=== PATIENT | male | born 1955 | race Caucasian/White ===

== ENCOUNTER 2018-06-01 04:08 | Inpatient (IN) | payer MEDICARE, OTHER ==
[2018-06-01] VITALS (12 sets, daily range): BP systolic 105–140; BP diastolic 64–86
[~2018-06-01] VITALS: Ht 167.6 cm; Wt 72.0 kg
[2018-06-01] MEDS ORDERED: PANTOPRAZOLE 80 MG in SODIUM CHLORIDE 0.9% 100 ML IV SCH (04:11)
[2018-06-01] MEDS ORDERED: OCTREOTIDE 500 MCG in SODIUM CHLORIDE 0.9% 249 ML IV PRN (04:11)
[2018-06-01] MEDS ORDERED: PANTOPRAZOLE 40 MG IV ONE (04:15)
[2018-06-01] MEDS ORDERED: SODIUM CHLORIDE 0.9% 1,000ML IVBOLUS ONE (04:30)
[2018-06-01] MEDS ORDERED: PANTOPRAZOLE 40 MG IV IVPush ONE (04:30)
[2018-06-01] MEDS ORDERED: OCTREOTIDE 100MCG/ML, 1ML (0.1MG/ML) IV ONE (04:30)
[2018-06-01] MEDS ORDERED: SODIUM CHLORIDE FLUSH 10ML SYR IVF ONE (04:30)
[2018-06-01] MEDS ORDERED: ONDANSETRON 2MG/ML, 2ML IVPush ONE (04:30)
--- NOTE | 2018-06-01 04:45 | NUR ---
PT TO TRAUMA 3 WITH REPORTED SYNCOPE AND VOMITING BLOOD. PT WITH SECOND IV STARTED AND MEDICATED ORDERED WITH IV DRIPS AND 2 UNITS OF UNMATCHED BLOOD WHERE STARTED. PT WITH SON AT BEDSIDE AND IS FEELING MUCH BETER AFTED WARM BLANKETS AND BEAR HEATER STARTED. PT POSITIONED FOR COMFORT.
[2018-06-01 05:00] LABS: MEAN CORPUSCULAR HEMOGLOBIN 23.3 pg (27.5-34.5); MEAN CORPUSCULAR HGB CONC 30.9 g/dL (33.2-36.2); MEAN CORPUSCULAR VOLUME 75.4 fL (81-97); MEAN PLATELET VOLUME 8.1 fL (7.4-10.4); PLATELET COUNT 139 x10^3/uL (130-400); RED BLOOD COUNT 2.69 x10^6/uL (4.38-5.82); RED CELL DISTRIBUTION WIDTH 20.3 % (9.4-14.8)
--- NOTE | 2018-06-01 05:01 | NUR ---
ADMIT MD AT BEDSIDE
--- NOTE | 2018-06-01 05:01 | NUR ---
CRITICAL BLOOD COUNTS REPORTED TO [facility]
[2018-06-01 05:08] LABS: INTERNATIONAL NORMALIZED RATIO 1.19 (0.93-1.1); PROTHROMBIN TIME 12.4 Seconds (9.6-11.5)
[2018-06-01 05:13] LABS: ALBUMIN 2.5 g/dL (3.4-5.0); ANION GAP 9 mmol/L (5-15); CALCIUM 7.3 mg/dL (8.5-10.1); CHLORIDE 117 mmol/L (98-107)
--- NOTE | 2018-06-01 05:15 | NUR ---
PT INTUBATED AND PREPED FOR ENDOSCOPY. PT WITH 2 NEW IV SITES ESTABLISHED. GI CALLED [facility] PT CONSENTED. BLD TO LAB AFTER 2 UNITS OF UNMATCHED BLOOD COMPLETE. PT TOLERATED WELL AND IS SEDATED ON 25 MEQ OF PROPOFOL. OTHER IV DRIPS CONTINUE ORDERED.
[2018-06-01 05:18] LABS: ALANINE AMINOTRANSFERASE 40 U/L (12-78); ALKALINE PHOSPHATASE 55 U/L (45-117); BILIRUBIN,TOTAL 0.3 mg/dL (0.2-1.0); CREATININE 0.95 mg/dL (0.7-1.3); TOTAL PROTEIN 5.2 g/dL (6.4-8.2)
[2018-06-01] MEDS ORDERED: hydrALAzine 20 MG/ML, 1ML IVPush PRN (05:30)
[2018-06-01] MEDS ORDERED: ONDANSETRON 2MG/ML, 2ML IVPush PRN (05:30)
[2018-06-01 05:41] LABS: BASOPHILS # (AUTO) 0.06 x10^3/uL (0-0.1); BASOPHILS % (AUTO) 1 % (0-1); EOSINOPHILS # (AUTO) 0.21 x10^3/uL (0-0.4); EOSINOPHILS % (AUTO) 4 % (1-7); LYMPHOCYTES # (AUTO) 0.89 x10^3/uL (1-3.4); LYMPHOCYTES % (AUTO) 18 % (22-44); MD MORPH REVIEW ONLY; MONOCYTES # (AUTO) 0.48 x10^3/uL (0.2-0.8); MONOCYTES % (AUTO) 10 % (2-9); NEUTROPHILS # (AUTO) 3.39 x10^3/uL (1.8-6.8); NEUTROPHILS % (AUTO) 67 % (42-75)
[2018-06-01 05:42] LABS: <PLATELET ESTIMATE> ADEQUATE; <PLT MORPHOLOGY> NORMAL PLT MORPH; ANISOCYTOSIS 1+; ECHINOCYTES 1+; MICROCYTOSIS 1+; OVALOCYTES 1+; POLYCHROMASIA 1+
[2018-06-01 05:43] LABS: ACANTHOCYTES 1+
[2018-06-01 05:45] LABS: SCHISTOCYTES 1+
--- NOTE | 2018-06-01 06:29 | NUR ---
ENDO TEAM AT BEDSIDE PROCEDURE UNDER WAY.
[2018-06-01 06:57] LABS: % IRON SATURATION 5 % (20-55); IRON LEVEL 22 mcg/dL (65-175); TOTAL IRON BINDING CAPACITY 435 mcg/dL (250-450)
--- NOTE | 2018-06-01 07:10 | NUR ---
REPORT GIVEN TO ONLINE ADVERTISING ANALYST AND PT READY FOR TRANSPORT.
[2018-06-01] MEDS: PROPOFOL 100 ML IV PRN ×5 (07:13→20:55)
[2018-06-01] MEDS ORDERED: DEXTROSE 50%, 50ML SYRINGE IVPush PRN (08:00)
[2018-06-01] MEDS ORDERED: DEXTROSE 4 GM TAB.CHEW PO PRN (08:00)
[2018-06-01] MEDS ORDERED: ALBUTEROL/IPRATROPIUM 2.5MG/0.5MG, 3 ML INLINE SCH (08:00)
[2018-06-01] MEDS ORDERED: FENTANYL PF 100 MCG/2ML IVPush PRN (08:00)
[2018-06-01] MEDS ORDERED: HEPARIN 5,000 UNITS/ML, 1ML SQ SCH (08:00)
[2018-06-01] MEDS ORDERED: GLUCAGON 1 MG IM PRN (08:00)
[2018-06-01] MEDS ORDERED: LIDOCAINE-MPF 1%, 2ML ENDO PRN (08:00)
[2018-06-01] MEDS ORDERED: PHARMACY MAY ADJ FOR RENAL FX MC SCH (08:00)
[2018-06-01] MEDS ORDERED: FENTANYL PF 100 MCG/2ML ONE (08:17)
[2018-06-01] MEDS ORDERED: ZOSYN PER PHARMACY MC PRN (08:30)
[2018-06-01] MEDS: SODIUM CHLORIDE FLUSH 10ML SYR IVF SCH ×2 (09:00→22:05)
[2018-06-01 09:03] LABS: ANION GAP 7 mmol/L (5-15); CALCIUM 7.1 mg/dL (8.5-10.1); CHLORIDE 117 mmol/L (98-107)
[2018-06-01 09:04] LABS: CREATININE 0.82 mg/dL (0.7-1.3); TRIGLYCERIDES 88 mg/dL (50-200)
[2018-06-01 09:10] LABS: MEAN CORPUSCULAR HEMOGLOBIN 24.6 pg (27.5-34.5); MEAN CORPUSCULAR HGB CONC 31.5 g/dL (33.2-36.2); MEAN CORPUSCULAR VOLUME 78.2 fL (81-97); MEAN PLATELET VOLUME 8.4 fL (7.4-10.4); PLATELET COUNT 151 x10^3/uL (130-400); RED BLOOD COUNT 3.27 x10^6/uL (4.38-5.82); RED CELL DISTRIBUTION WIDTH 21.5 % (9.4-14.8); TROPONIN I 0.117 ng/mL (0.000-0.045)
[2018-06-01] MEDS ORDERED: ROCURONIUM 10MG/ML,5ML ONE (10:25)
[2018-06-01] MEDS ORDERED: VECURONIUM 10 MG ONE (10:25)
[2018-06-01] MEDS ORDERED: SUCCINYLCHOLINE 20 MG/ML, 10ML ONE (10:25)
[2018-06-01] MEDS ORDERED: FENTANYL PF 250 MCG/5ML ONE (10:25)
[2018-06-01] MEDS ORDERED: PROPOFOL 10 MG/ML, 100ML IV ONE (10:25)
[2018-06-01] MEDS: LORazepam 2 MG/ML, 1ML IV PRN ×2 (10:52→13:55)
[2018-06-01] MEDS: INSULIN LISPRO 100 UNITS/ML, PEN SQ-INSULIN SCH ×2 (11:00→16:00)
[2018-06-01] MEDS: PIPERACILLIN/TAZO/PMX 3.375GM 50 ML IV SCH ×2 (12:10→19:13)
[2018-06-01] MEDS: POTASSIUM CHLORIDE 20 MEQ, THIAMINE 200 MG, FOLIC ACID 1 MG, MVI ADULT 10 ML in SODIUM ... IV SCH (12:49)
[2018-06-01 13:24] LABS: MICROSCOPIC NOT IND
[2018-06-01 13:28] LABS: CULTURE INDICATED? NO
[2018-06-01 14:30] LABS: ALBUMIN 2.7 g/dL (3.4-5.0); TROPONIN I 0.228 ng/mL (0.000-0.045)
[2018-06-01 14:35] LABS: BILIRUBIN, DIRECT 0.3 mg/dL (0.1-0.2); BILIRUBIN,INDIRECT 0.9 mg/dL (0.0-2.0); BILIRUBIN,TOTAL 1.2 mg/dL (0.2-1.0); TOTAL PROTEIN 5.8 g/dL (6.4-8.2)
[2018-06-01] MEDS ORDERED: OCTREOTIDE 500 MCG in SODIUM CHLORIDE 0.9% 249 ML IV SCH (15:30)
[2018-06-01] MEDS: PANTOPRAZOLE 80 MG in SODIUM CHLORIDE 0.9% 100 ML IV SCH ×2 (16:30→22:05)
[2018-06-01] MEDS ORDERED: SODIUM CHLORIDE 0.9% 1,000 ML IV SCH (19:00)
[2018-06-01] MEDS ORDERED: MAGNESIUM SULFATE PMX 2GM/50ML 50 ML IV ONE (19:00)
[2018-06-01 20:19] LABS: AMPHETAMINE SCREEN, URINE Positive (Negative); BARBITURATE SCREEN, URINE Negative (Negative); BENZODIAZEPINE SCREEN, URINE Positive (Negative); CANNABINOID SCREEN, URINE Positive (Negative); COCAINE SCREEN, URINE Negative (Negative); METHADONE SCREEN, URINE Negative (Negative); OPIATE SCREEN, URINE Positive (Negative)
[2018-06-01 20:26] LABS: MEAN CORPUSCULAR HEMOGLOBIN 25.4 pg (27.5-34.5); MEAN CORPUSCULAR HGB CONC 32.5 g/dL (33.2-36.2); MEAN CORPUSCULAR VOLUME 78.1 fL (81-97); MEAN PLATELET VOLUME 8.1 fL (7.4-10.4); PLATELET COUNT 124 x10^3/uL (130-400); RED BLOOD COUNT 3.61 x10^6/uL (4.38-5.82); RED CELL DISTRIBUTION WIDTH 19.3 % (9.4-14.8)
[2018-06-02] MEDS: PIPERACILLIN/TAZO/PMX 3.375GM 50 ML IV SCH ×5 (00:32→23:28)
[2018-06-02 02:34] LABS: MEAN CORPUSCULAR HEMOGLOBIN 24.8 pg (27.5-34.5); MEAN CORPUSCULAR HGB CONC 31.6 g/dL (33.2-36.2); MEAN CORPUSCULAR VOLUME 78.6 fL (81-97); MEAN PLATELET VOLUME 8.2 fL (7.4-10.4); PLATELET COUNT 154 x10^3/uL (130-400); RED CELL DISTRIBUTION WIDTH 20.4 % (9.4-14.8)
[2018-06-02] MEDS: PROPOFOL 100 ML IV PRN (03:57)
[2018-06-02 04:33] LABS: BASOPHILS # (AUTO) 0.03 x10^3/uL (0-0.1); BASOPHILS % (AUTO) 0 % (0-1); EOSINOPHILS # (AUTO) 0.27 x10^3/uL (0-0.4); EOSINOPHILS % (AUTO) 2 % (1-7); LYMPHOCYTES # (AUTO) 1.34 x10^3/uL (1-3.4); LYMPHOCYTES % (AUTO) 11 % (22-44); MD NO; MEAN CORPUSCULAR HEMOGLOBIN 24.7 pg (27.5-34.5); MEAN CORPUSCULAR HGB CONC 31.7 g/dL (33.2-36.2); MEAN CORPUSCULAR VOLUME 78.1 fL (81-97); MEAN PLATELET VOLUME 8.1 fL (7.4-10.4); MONOCYTES % (AUTO) 12 % (2-9); NEUTROPHILS # (AUTO) 9.04 x10^3/uL (1.8-6.8); NEUTROPHILS % (AUTO) 75 % (42-75); PLATELET COUNT 181 x10^3/uL (130-400); RED BLOOD COUNT 3.93 x10^6/uL (4.38-5.82); RED CELL DISTRIBUTION WIDTH 19.6 % (9.4-14.8)
[2018-06-02 04:44] LABS: ALANINE AMINOTRANSFERASE 49 U/L (12-78); ALBUMIN 3.1 g/dL (3.4-5.0); ANION GAP 8 mmol/L (5-15); CALCIUM 7.5 mg/dL (8.5-10.1); CHLORIDE 118 mmol/L (98-107); CREATININE 1.07 mg/dL (0.7-1.3)
[2018-06-02 04:46] LABS: ALKALINE PHOSPHATASE 55 U/L (45-117); TOTAL PROTEIN 6.2 g/dL (6.4-8.2)
[2018-06-02 08:40] LABS: MEAN CORPUSCULAR HGB CONC 31.9 g/dL (33.2-36.2); MEAN CORPUSCULAR VOLUME 78.5 fL (81-97); MEAN PLATELET VOLUME 7.5 fL (7.4-10.4); PLATELET COUNT 185 x10^3/uL (130-400); RED BLOOD COUNT 3.78 x10^6/uL (4.38-5.82); RED CELL DISTRIBUTION WIDTH 20.1 % (9.4-14.8)
[2018-06-02] MEDS: SODIUM CHLORIDE FLUSH 10ML SYR IVF SCH ×2 (10:03→20:20)
[2018-06-02] MEDS: POTASSIUM CHLORIDE 20 MEQ, THIAMINE 200 MG, FOLIC ACID 1 MG, MVI ADULT 10 ML in SODIUM ... IV SCH (10:03)
[2018-06-02] MEDS: PANTOPRAZOLE 80 MG in SODIUM CHLORIDE 0.9% 100 ML IV SCH (11:30)
[2018-06-02 14:25] LABS: MEAN CORPUSCULAR HEMOGLOBIN 25.5 pg (27.5-34.5); MEAN CORPUSCULAR HGB CONC 32.5 g/dL (33.2-36.2); MEAN CORPUSCULAR VOLUME 78.4 fL (81-97); MEAN PLATELET VOLUME 7.5 fL (7.4-10.4); PLATELET COUNT 155 x10^3/uL (130-400); RED BLOOD COUNT 3.47 x10^6/uL (4.38-5.82); RED CELL DISTRIBUTION WIDTH 20.2 % (9.4-14.8)
[2018-06-02] MEDS ORDERED: OCTREOTIDE 500 MCG in SODIUM CHLORIDE 0.9% 249 ML IV SCH (15:30)
[2018-06-02] MEDS: LACTULOSE 20 GM/30 ML UDC PO SCH (20:19)
[2018-06-03 04:46] LABS: BASOPHILS # (AUTO) 0.04 x10^3/uL (0-0.1); BASOPHILS % (AUTO) 1 % (0-1); EOSINOPHILS # (AUTO) 0.39 x10^3/uL (0-0.4); EOSINOPHILS % (AUTO) 5 % (1-7); LYMPHOCYTES # (AUTO) 1.21 x10^3/uL (1-3.4); LYMPHOCYTES % (AUTO) 17 % (22-44); MD NO; MEAN CORPUSCULAR HEMOGLOBIN 25.9 pg (27.5-34.5); MEAN CORPUSCULAR HGB CONC 32.7 g/dL (33.2-36.2); MEAN CORPUSCULAR VOLUME 79.1 fL (81-97); MEAN PLATELET VOLUME 8.2 fL (7.4-10.4); MONOCYTES # (AUTO) 1.04 x10^3/uL (0.2-0.8); MONOCYTES % (AUTO) 14 % (2-9); NEUTROPHILS # (AUTO) 4.58 x10^3/uL (1.8-6.8); NEUTROPHILS % (AUTO) 63 % (42-75); PLATELET COUNT 122 x10^3/uL (130-400); RED BLOOD COUNT 3.04 x10^6/uL (4.38-5.82); RED CELL DISTRIBUTION WIDTH 20.5 % (9.4-14.8)
[2018-06-03 04:50] LABS: ALBUMIN 2.6 g/dL (3.4-5.0); ANION GAP 5 mmol/L (5-15); CALCIUM 7.3 mg/dL (8.5-10.1); CHLORIDE 119 mmol/L (98-107)
[2018-06-03 04:58] LABS: ALANINE AMINOTRANSFERASE 40 U/L (12-78); ALKALINE PHOSPHATASE 41 U/L (45-117); BILIRUBIN,TOTAL 1.1 mg/dL (0.2-1.0); TOTAL PROTEIN 5.6 g/dL (6.4-8.2)
[2018-06-03] MEDS: PIPERACILLIN/TAZO/PMX 3.375GM 50 ML IV SCH (05:42)
[2018-06-03] MEDS: LACTULOSE 20 GM/30 ML UDC PO SCH ×2 (08:00→21:32)
[2018-06-03] MEDS: SODIUM CHLORIDE FLUSH 10ML SYR IVF SCH ×2 (08:01→21:32)
[2018-06-03] MEDS ORDERED: FOLIC ACID IV SCH (10:00)
[2018-06-03] MEDS ORDERED: THIAMINE IV SCH (10:00)
[2018-06-03] MEDS ORDERED: CEFTRIAXONE PMX 1GM/50ML 50 ML IV SCH (10:00)
[2018-06-03] MEDS ORDERED: SODIUM CHLORIDE 0.9% IV SCH (10:00)
[2018-06-03] MEDS: MULTIVITAMINS/MINERALS TABLET PO SCH (10:32)
[2018-06-03 19:06] VITALS: BP 138/76
[2018-06-04 00:13] VITALS: BP 116/64
[2018-06-04 05:17] LABS: BASOPHILS # (AUTO) 0.01 x10^3/uL (0-0.1); BASOPHILS % (AUTO) 0 % (0-1); EOSINOPHILS # (AUTO) 0.44 x10^3/uL (0-0.4); EOSINOPHILS % (AUTO) 8 % (1-7); LYMPHOCYTES % (AUTO) 13 % (22-44); MD NO; MEAN CORPUSCULAR HEMOGLOBIN 26.1 pg (27.5-34.5); MEAN CORPUSCULAR HGB CONC 33.2 g/dL (33.2-36.2); MEAN CORPUSCULAR VOLUME 78.4 fL (81-97); MEAN PLATELET VOLUME 7.9 fL (7.4-10.4); MONOCYTES # (AUTO) 0.59 x10^3/uL (0.2-0.8); MONOCYTES % (AUTO) 11 % (2-9); NEUTROPHILS # (AUTO) 3.78 x10^3/uL (1.8-6.8); NEUTROPHILS % (AUTO) 68 % (42-75); PLATELET COUNT 106 x10^3/uL (130-400); RED BLOOD COUNT 2.93 x10^6/uL (4.38-5.82); RED CELL DISTRIBUTION WIDTH 21.1 % (9.4-14.8)
[2018-06-04 05:26] LABS: CHLORIDE 116 mmol/L (98-107)
[2018-06-04 05:31] LABS: ALANINE AMINOTRANSFERASE 39 U/L (12-78); ALBUMIN 2.7 g/dL (3.4-5.0); ALKALINE PHOSPHATASE 50 U/L (45-117); ANION GAP 6 mmol/L (5-15); BILIRUBIN,TOTAL 0.7 mg/dL (0.2-1.0); CALCIUM 7.6 mg/dL (8.5-10.1); CREATININE 0.65 mg/dL (0.7-1.3); TOTAL PROTEIN 5.9 g/dL (6.4-8.2)
[2018-06-04] MEDS ORDERED: ACETAMINOPHEN 325 MG TABLET PO PRN (07:30)
[2018-06-04] MEDS ORDERED: POTASSIUM CHLORIDE 20 MEQ TAB.ER.PRT PO ONE (07:30)
[2018-06-04 07:40] VITALS: BP 148/68
[2018-06-04] MEDS: SODIUM CHLORIDE FLUSH 10ML SYR IVF SCH ×2 (08:45→20:47)
[2018-06-04] MEDS: THIAMINE 100MG TABLET PO SCH (08:45)
[2018-06-04] MEDS: FOLIC ACID 1 MG TABLET PO SCH (08:45)
[2018-06-04] MEDS: LACTULOSE 20 GM/30 ML UDC PO SCH ×2 (08:45→20:46)
[2018-06-04] MEDS: MULTIVITAMINS/MINERALS TABLET PO SCH (08:45)
[2018-06-04] MEDS: IRON SUCROSE COMPLEX 100MG/5ML IV SCH (08:45)
[2018-06-04] MEDS: LACTOBACILLUS CHEW TABLET PO SCH ×3 (08:45→20:45)
[2018-06-04 18:28] VITALS: BP 145/76
[2018-06-04] MEDS: GUAIFENESIN 200 MG TABLET PO SCH (20:45)
[2018-06-05 02:18] VITALS: BP 143/77
[2018-06-05 05:08] LABS: BASOPHILS # (AUTO) 0.05 x10^3/uL (0-0.1); BASOPHILS % (AUTO) 1 % (0-1); EOSINOPHILS # (AUTO) 0.31 x10^3/uL (0-0.4); EOSINOPHILS % (AUTO) 6 % (1-7); LYMPHOCYTES # (AUTO) 0.88 x10^3/uL (1-3.4); LYMPHOCYTES % (AUTO) 16 % (22-44); MD NO; MEAN CORPUSCULAR HEMOGLOBIN 25.5 pg (27.5-34.5); MEAN CORPUSCULAR VOLUME 79.8 fL (81-97); MEAN PLATELET VOLUME 8.2 fL (7.4-10.4); MONOCYTES % (AUTO) 13 % (2-9); NEUTROPHILS # (AUTO) 3.52 x10^3/uL (1.8-6.8); NEUTROPHILS % (AUTO) 65 % (42-75); PLATELET COUNT 121 x10^3/uL (130-400); RED BLOOD COUNT 2.97 x10^6/uL (4.38-5.82); RED CELL DISTRIBUTION WIDTH 21.4 % (9.4-14.8)
[2018-06-05 05:15] LABS: ANION GAP 4 mmol/L (5-15); CALCIUM 7.7 mg/dL (8.5-10.1); CHLORIDE 117 mmol/L (98-107); CREATININE 0.65 mg/dL (0.7-1.3)
[2018-06-05] MEDS: LACTOBACILLUS CHEW TABLET PO SCH (07:41)
[2018-06-05] MEDS: THIAMINE 100MG TABLET PO SCH (07:41)
[2018-06-05] MEDS: MULTIVITAMINS/MINERALS TABLET PO SCH (07:41)
[2018-06-05] MEDS: FOLIC ACID 1 MG TABLET PO SCH (07:41)
[2018-06-05] MEDS: SODIUM CHLORIDE FLUSH 10ML SYR IVF SCH (07:41)
[2018-06-05] MEDS: IRON SUCROSE COMPLEX 100MG/5ML IV SCH (07:41)
[2018-06-05] MEDS: GUAIFENESIN 200 MG TABLET PO SCH (07:42)
[2018-06-05] MEDS: LACTULOSE 20 GM/30 ML UDC PO SCH ×2 (07:42→07:47)
[2018-06-05 08:04] VITALS: BP 141/88
[2018-06-05] MEDS ORDERED: THIA100T67 PO (09:08)
[2018-06-05] MEDS ORDERED: FERR-51 PO (09:08)
[2018-06-05] MEDS ORDERED: GUAI200T3 PO (09:08)
[2018-06-05] MEDS ORDERED: LACT20SO13 PO (09:08)
[2018-06-05] MEDS ORDERED: ACID1TAB7 PO (09:08)
== END 2018-06-05 10:24 | disposition home or self-care (01) | DRG 441 ==
LOC: ED 04:35 → EDIP 04:36 → ED 05:37 → ICU 07:18 → 3NW 06-03 10:50
PROVIDERS: ADMIT Family Medicine; ATTEND Family Medicine
PROC: 30233N1 Transfusion of Nonautologous Red Blood Cells into Peripheral Vein, Percutaneous Approach (ICD-10-PCS; 2018-06-01)
PROC: 30233K1 Transfusion of Nonautologous Frozen Plasma into Peripheral Vein, Percutaneous Approach (ICD-10-PCS; 2018-06-01)
PROC: 0T9B70Z Drainage of Bladder with Drainage Device, Via Natural or Artificial Opening (ICD-10-PCS; 2018-06-01)
PROC: 5A1945Z Respiratory Ventilation, 24-96 Consecutive Hours (ICD-10-PCS; 2018-06-01)
PROC: 0BH17EZ Insertion of Endotracheal Airway into Trachea, Via Natural or Artificial Opening (ICD-10-PCS; 2018-06-01)
PROC: 06L38CZ Occlusion of Esophageal Vein with Extraluminal Device, Via Natural or Artificial Opening Endoscopic (ICD-10-PCS; principal; 2018-06-01 06:00)
DX: K76.6 Portal hypertension (principal); J96.01 Acute respiratory failure with hypoxia; I85.11 Secondary esophageal varices with bleeding; F10.239 Alcohol dependence with withdrawal, unspecified; Z99.11 Dependence on respirator [ventilator] status; D62 Acute posthemorrhagic anemia; E87.0 Hyperosmolality and hypernatremia; R57.9 Shock, unspecified; K70.31 Alcoholic cirrhosis of liver with ascites; K72.90 Hepatic failure, unspecified without coma; Z53.21 Procedure and treatment not carried out due to patient leaving prior to being seen by health care provider; B18.2 Chronic viral hepatitis C; D69.6 Thrombocytopenia, unspecified; E83.42 Hypomagnesemia; E87.6 Hypokalemia; E88.09 Other disorders of plasma-protein metabolism, not elsewhere classified; F15.10 Other stimulant abuse, uncomplicated; F17.200 Nicotine dependence, unspecified, uncomplicated; K31.89 Other diseases of stomach and duodenum
CPT/HCPCS: 36415; 36600; 71045; 76700; 80048; 80053; 80076; 80307; 81003; 82140; 82803; 82962; 83540; 83550; 83605; 83735; 84100; 84478; 84484; 85014; 85018; 85025; 85027; 85610; 85730; 86803; 86850; 86900; 86923; 87070; 87081; 87205; 87521; 93005; 94002; 94003; 96365; 96375; G0378; J0696; J1756; J2354; J2543; J2704; J3010; J3411; J3480; C9113; J0330; J2060; J3475; J7030; J7050; P9016; P9017